=== PATIENT | female | born 1955 | race Caucasian/White ===

== ENCOUNTER 2016-12-14 07:00 | Day surgery (SDC) | payer OTHER ==
[2016-12-11 10:08] LABS: BASOPHILS 0.7 %; BASOPHILS ABSOLUTE 0.05 10/3/uL (0.0-0.16); EOSINOPHILS 1.1 %; EOSINOPHILS ABSOLUTE 0.08 10/3/uL (0.0-0.53); HEMATOCRIT 37.1 % (36.0-48.0); HEMOGLOBIN 13.1 g/dL (12.0-16.0); IMMATURE GRANULOCYTES 0.3 %; IMMATURE GRANULOCYTES ABSOLUTE 0.02 10/3/uL (0.0-0.11); LYMPHOCYTES 12.1 %; LYMPHOCYTES ABSOLUTE 0.86 10/3/uL (0.67-4.30); MANUAL DIFF NO %; MEAN CORPUS HGB CONC 35.3 g/dL (32.0-36.0); MEAN CORPUSCULAR HEMOGLOB 33.3 pg (26.0-34.0); MEAN CORPUSCULAR VOLUME 94.4 fL (80-100); MEAN PLATELET VOLUME 10.4 fL (9.2-13.0); MONOCYTES 9.3 %; MONOCYTES ABSOLUTE 0.66 10/3/uL (0.21-1.20); NEUTROPHILS 76.5 %; NEUTROPHILS ABSOLUTE 5.44 10/3/uL (2.02-8.40); PLATELET COUNT 200 10/3/uL (150-400); RBC DISTRIBUTION WIDTH 13.5 % (12.0-16.0); RED CELL COUNT 3.93 10/6/uL (4.0-5.6); WHITE BLOOD CELLS 7.1 10/3/uL (4.5-10.5)
[2016-12-11 10:23] LABS: BUN (BLOOD UREA NITROGEN) 8 MG/DL (6-23); CALCIUM, SERUM 9.2 MG/DL (8.5-10.4); CHLORIDE, SERUM 101 MMOL/L (96-112); CO2 (CARBON DIOXIDE) 30 MMOL/L (24-34); CREATININE 1.05 MG/DL (0.55-1.02); GFR AFRICAN AMERICAN 67 ML/MIN (>=60); GFR NON AFRICAN AMERICAN 58 ML/MIN (>=60); GLUCOSE, SERUM 100 MG/DL (60-99); PFA (COL/EPI) 102 SEC (72-180); POTASSIUM, SERUM 4.1 MMOL/L (3.5-5.3); SODIUM, SERUM 135 MMOL/L (135-148)
[2016-12-11 10:33] LABS: INTERNATIONAL NORMAL RATI 1.1 UNITS (-); PARTIAL THROMBO TIME 30.6 SEC (22.5-37.2); PROTIME (NOT ORD) 13.8 SEC (12.0-14.5)
--- NOTE | ~2016-12-14 | OP ---
Record Of Operation [facility] [address] [place]. [address] NAME: NIRALI RM : 57 STATUS : [facility]#: [id number] AGE: 61 ADM/REG DATE : 12/14/16 MR#: [id number] REPORT SERV DATE: 12/15/16 DICTATED BY: KRUNAL BHAT DATE: 12/15/16 REPORT STATUS : Draft TRANSCRIBED BY: MODRoyer DATE: 12/15/16 DATE OF PROCEDURE: 12/14/2016 PREOPERATIVE DIAGNOSES: History of breast cancer, surgical absence of the breast, late effect of radiation, and deformity of implant-based reconstruction. POSTOPERATIVE DIAGNOSES: History of breast cancer, surgical absence of the breast, late effect of radiation, and deformity of implant-based reconstruction. PROCEDURE: Bilateral tissue machine inspector exchanged and fat grafting. INDICATIONS AND FINDINGS OF THE PROCEDURE: This 61-year-old female is status post bilateral mastectomy, right radiation therapy. She reports now six months after radiation therapy she is appropriate for the above-described operative intervention. DETAILS OF THE PROCEDURE: The patient was brought to the operating room. After being marked in the preoperative holding area, she was prepped and draped in usual sterile fashion for the above-described procedure. First, our attention was turned to the abdomen. About 400 mL of wetting solution was then infiltrated into the abdomen and 350 mL of fatty aspirate was then removed for REVOLVE apparatus. This yielded about 260 or 250 mL of injectable fat. Through multiple small stab incisions and using a topographical map placed before surgery, 140 mL was transferred into the right soft tissue envelope and 110 into the left. Incisions were closed. She was cleansed with Hibiclens solution. Gloves were changed and then an incision was made in the inframammary crease on the right. Dissection was carried down to the level of the implant. The tissue machine inspector was ruptured and removed. A superior capsulotomy was then carried out. She was checked for hemostasis. Irrigated with Hibiclens solution and inferior drain was placed and then a 555 MH implant was placed into the site. This was manipulated into an appropriate position and the wounds were then closed with multiple layers of Vicryl and Monocryl through to an intracuticular in the skin. Our attention was then turned contralaterally where an identical procedure was carried out. Incision was made in the inframammary crease. Dissection carried down to the level of the implant. The implant was subsequently ruptured and removed. The superior capsulotomy was carried out. She was checked for hemostasis. Irrigated with Hibiclens solution. Inferior drain was then placed and then another 555 MH implant was placed into the site. This was manipulated into an appropriate position and the wounds were then closed with multiple layers of Vicryl and Monocryl through to an intracuticular in the skin. She was cleansed with peroxide. Light compressive abdominal garment was placed and she was remanded to the recovery room in stable condition. SPONGE COUNTS: All sponge and needle counts were correct. MEL/DELMER Krunal Record Of Operation [address] [address] NAME: NIRALI RM : 57 STATUS : [facility] PAT#: [id number] AGE: 61 ADM/REG DATE : 12/14/16 MR#: [id number] REPORT SERV DATE: 12/15/16 DICTATED BY: KRUNAL BHAT DATE: 12/15/16 REPORT STATUS : Draft TRANSCRIBED BY: DELMER DATE: 12/15/16 Sergo Bhat / [id number] CC: Sergo Hare M.D.
[~2016-12-14 07:00] MED LIST: ALEVE220 MG PO; ALPHA LIPOIC300 MG PO; AT25 PO; ATV.5 PO; CALCIUM LIQUID PO; CALMOSEPTINE O2.5 OZ TOP; CALTRA600D PO; CARBOPLATIN150 MG IV; CIP5 PO; CLARIT10 PO; DEX4 PO; DOCETAXEL IV; FLEXERIL5 MG PO; FLUCON150 PO; FORTICAL200 MG/ACT NAS; IMOD PO; K500 PO; KLOR-CON M2020 MEQ PO; LEVSINTAB SL; LIOR10 PO; LOM PO; MAGOX4 PO; MAX25 PO; MD ANDERSON PO; MOMUD PO; MULTIPLE VIT PO; NALTREXONE50 MG PO; NEULASTA SC; ORAZINC110 MG PO; PERCOCET1 TA2 PO; POT GLUCONAT550 M1 PO; PR25 PO; PREV30 PO; T PO; ULTRAM50 PO; WELCHOL625 MG PO; ZOFRAN8 PO; [UNRECOGNIZED DRUG - OTHER]; [UNRECOGNIZED DRUG - OTHER] IV; [UNRECOGNIZED DRUG - OTHER] IV
== END 2016-12-14 14:44 | disposition home or self-care (01) ==
LOC: SDC 07:00
PROVIDERS: Surgery Surgery of the Hand
PROC: 0HHV0NZ Insertion of Tissue Expander into Bilateral Breast, Open Approach (ICD-10-PCS; principal; 2016-12-14 09:00)
DX: N65.0 Deformity of reconstructed breast (principal); E78.00 Pure hypercholesterolemia, unspecified; K44.9 Diaphragmatic hernia without obstruction or gangrene; I10 Essential (primary) hypertension; Z85.3 Personal history of malignant neoplasm of breast; Z90.13 Acquired absence of bilateral breasts and nipples; Z98.890 Other specified postprocedural states; Z88.5 Allergy status to narcotic agent; Z90.49 Acquired absence of other specified parts of digestive tract; Z90.710 Acquired absence of both cervix and uterus
CPT/HCPCS: 80048; 85025; 85576; 85610; 85730; 93005; A9270-GY; C1769; C1789; J0690; J1170; J1885; J2250; J2405; J3010